=== PATIENT | male | born 1955 | race Caucasian/White ===

== ENCOUNTER → 2017-06-10 | Day surgery (SDC) | payer OTHER ==
[~2017-06-10] VITALS: Ht 170.2 cm; Wt 83.0 kg
[~2017-06-10] MED LIST: AMLODIPINE BESY10 M1 PO; ASPIRIN EC81 M1 PO; COZAAR50 M1 PO; DULERA 200 MCG/13 GM INH; ERYTHROMYCIN5 MG/GM OPH; GLYBURIDE5 M1 PO; JANUMET 50-5001 EACH PO; LIPITOR80 M1 PO; LOPRESSOR100 M1 PO; MAGNESIUM200 M1 PO; NITROGLYCERIN0.4 M1 SL; PROAIR HFA8.5 GM INH; TRAZODONE HCL100 M1 PO; VITAMIN B-121000 MC3 PO; VITAMIN B-650 M2 PO
--- NOTE | 2017-06-10 11:36 | Operative Report ---
Operative/Inv Procedure Report Surgery Date: 06/10/17 Name of Procedure: Microlaryngoscopy with laryngeal biopsy and diode laser excision of vocal cord lesion, bilateral Pre-Operative Diagnosis: 1. Aryepiglottic fullness, left 2. Vocal cord lesion, right Post-Operative Diagnosis: 1. Aryepiglottic folds fullness, left 2. False vocal cord lesion, right 3. True vocal cord lesion, right 4. False vocal cord lesion, left 5. True vocal cord lesion, left Estimated Blood Loss: scant Surgeon/Log Clerk: Paris Meza MD Anesthesia: general endotracheal tube Drains: Non- Specimens: 1. False vocal cord lesion, right 2. True vocal cord lesion, right 3. False vocal cord lesion, left 4. True vocal cord lesion, left 5. Aryepiglottic fold, left Complications: Non- Condition: Stable on leaving the OR Operative Indication: Patient has a known pulmonary malignancy Heavy smoker Hoarse voice Larynx was checked prior to chemoradiation for pulmonary cancer Right vocal cord lesion was observed CT neck revealed thickening of left aryepiglottic fold Operative/Procedure Note Note: Patient was brought to the operating room. Placed on the operating table in supine position. First timeout was performed including patient's name, ID number and planned procedure. Then general oroendotracheal anesthesia was induced. Laser tube was used and it was secured with tape over the left lip commissure. Next patient was positioned for microlaryngoscopy. Operating room table was rotated 90 away from the anesthesia team toward patient's right. Head was sterilely draped. Anterior commissure laryngoscope was then used and laryngoscopy was performed. A dental guard was used for protection of the upper teeth. Anterior commissure laryngoscope was then used and laryngoscopy was performed. The anterior commissure laryngoscope was introduced into the oral cavity, oropharynx, hypopharynx and larynx. Examination of the larynx and hypopharynx was then carried. Base of tongue, valleculae appeared to be clear both right and left piriform sinuses were clear. Epiglottis over the lingual and laryngeal surfaces was clear. Right Aryepiglottic fold was intact. Left aryepiglottic fold appeared to be thickeved. There was no evidence of exophytic lesions. Posterior commissure was clear. Right false cord appears to have exophytic lesion. Right true cord had hyperkeratotic changes. Left false cord was somewhat full and without mucosal changes left vocal cord had somewhat thickened irregular mucosa. Laryngoscope was fixed in place with an suspension arm and the microscope and diode laser were connected. At first cup forceps were used to obtain biopsies of right false cords. This followed by a similar procedure performed right true vocal cord. Bleeding was controlled by application of neuro heidi saturated with epinephrine. This followed by application of diode laser set on 3 W continuous mode. At the end of laser application was no evidence of false cord works full cord lesions. There was also no bleeding. Next laryngoscope was repositioned to visualize the left side and suspended again. Left vocal cord mucosa appeared to be somewhat irregular. Biopsy of the mucosa was obtained. This followed by similar biopsy of the false cord. There were no obvious exophytic lesions, the mucosa appeared to be somewhat irregular. In a similar manner all bleeding was controlled by application of neuro heidi saturated with epinephrine. Following this diode laser was used to remove any additional on mucosal irregularity. The laser was set on a power of 3 W continuous mode. At the end of laser application there was no further bleeding. The suspension apparatus was dismounted and all attention was now paid to the aryepiglottic fold. Biopsies of the aryepiglottic folds were gone with Dopp cup forceps. The bleeding at the biopsy site was then controlled with diode laser. The procedure was completed. Microscope and laser were detached Laryngoscope was dismounted from the suspension apparatus and removed. Surgery was completed. Stomach was suctioned with an OG tube. The patient was reawakened, extubated and taken to the recovery room in good condition. There were no complications. Estimated blood loss was minimal. Findings: False cord, right- exophytic lesion True cord, right hyperkeratotic-like lesion False cord, leftirregular appearing mucosa True cords, leftirregular appearing mucosa Aryepiglottic fold, leftsomewhat thickened, no exophytic lesions Discharge Disposition: PACU
== END ==
LOC: STS 02:33
DX: J38.3 Other diseases of vocal cords (principal); J38.1 Polyp of vocal cord and larynx; F17.200 Nicotine dependence, unspecified, uncomplicated; R49.0 Dysphonia; C34.90 Malignant neoplasm of unspecified part of unspecified bronchus or lung; I10 Essential (primary) hypertension; I25.10 Atherosclerotic heart disease of native coronary artery without angina pectoris; I25.2 Old myocardial infarction
CPT/HCPCS: C9399; J0131; J2250